=== PATIENT | male | born 1970 | race Caucasian/White ===

== ENCOUNTER 2021-03-31 16:51 | Emergency (ER) | payer OTHER ==
[2021-03-31 18:03] LABS: ALBUMIN 4.5 g/dl (3.4-5.0); BILIRUBIN,TOTAL 1.6 mg/dl (0.2-1); CALCIUM 9.4 mg/dl (8.5-10); CREATININE 0.9 mg/dl (0.55-1.3); MAGNESIUM 1.9 mg/dL (1.8-2.4); PHOSPHOROUS 2.9 mg/dl (2.5-4.9); TOT PROT 7.3 g/dl (6.4-8.2)
[2021-03-31 18:06] VITALS: PULSE 119; TEMP 98.8; BMI 28.5
[2021-03-31 18:30] VITALS: BP 140/95
[2021-03-31 19:15] LABS: EOS % 0.8 % (0-4.5); HEMATOCRIT 44.9 % (35.4-49); HEMOGLOBIN 15.1 GM/dL (11.7-16.9); LYMPH % 21.2 % (8-40); MCH 29.3 pg (25.7-33.7); MCHC 33.5 g/dl (32.0-35.9); MEAN CELL VOLUME 87.3 fl (80-96); MEAN PLT VOLUME 8.1 fl (7.5-11.1); MONO % 6.2 % (3.8-10.2); NEUT % 70.8 % (42.8-82.8); PLATELET COUNT 197 10^3/uL (134-434); RBC 5.14 M/mm3 (4.00-5.60); RDW 13.3 % (11.9-15.9); WHITE BLOOD COUNT 6.6 K/mm3 (4.0-10.0)
[2021-04-01 13:07] LABS: SARS-CoV-2 NAA Not Detected (Not Detected)
== END 2021-03-31 18:46 | disposition home or self-care (01) ==
LOC: FER 16:51
DX: R03.0 Elevated blood-pressure reading, without diagnosis of hypertension (principal)
CPT/HCPCS: 36415; 71045-TC-FY; 80053; 81003; 81015; 83735; 84100; 84484; 85025; 93005; 99285-25; C9803; U0003; U0005